=== PATIENT | male | born 1995 | race Caucasian/White ===

== ENCOUNTER 2022-03-28 13:23 | Emergency (ER) | payer MEDICAID, SELFPAY ==
[2022-03-28 13:25] VITALS: BP 147/92; PULSE 108; RESP 20; TEMP 36.4; O2SAT 99; BMI 19.3
--- NOTE | 2022-03-28 13:43 | ED.RN ---
pt refusing to stay in room when asked. whatcha gonna do about it kaci retana. pt gave staff the peace sign, pt left.
== END 2022-03-28 13:51 | disposition left against medical advice (07) ==
LOC: ED 13:51
PROVIDERS: Emergency Provider Emergency Medicine; Visit Provider Emergency Medicine
DX: Z53.21 Procedure and treatment not carried out due to patient leaving prior to being seen by health care provider (principal)
CPT/HCPCS: 99283; A4216

== ENCOUNTER 2022-03-30 12:25 | Emergency (ER) | payer SELFPAY ==
[2022-03-30 12:25] VITALS: BP 134/71; PULSE 102; RESP 18; TEMP 36.6; O2SAT 98; BMI 22.6
[2022-03-30 12:51] VITALS: BP 103/55; PULSE 91; RESP 16; O2SAT 97
--- NOTE | 2022-03-30 12:58 | ED.RN ---
pt was outside of department on ramp. he was willing to return to ed for help. pt walked in to room 17 and assessed. post assessment pt requested to leave. pt was not pink slipped by pd and maintained his rights to make medical decision. he displayed paranoid behavior, but stated no thoughts of suicidal or homicidal ideation. he was given water prior to leaving department under own power with no s/s of impairment. demario was instructed that he could return at anytime for help. he expressed understanding and gratitude. pacheco burks, rn [id number]
== END 2022-03-30 12:52 | disposition left against medical advice (07) ==
DX: Z53.21 Procedure and treatment not carried out due to patient leaving prior to being seen by health care provider (principal)
CPT/HCPCS: 99281

== ENCOUNTER 2022-03-30 16:29 | Emergency (ER) | payer MEDICAID, SELFPAY ==
[2022-03-30] VITALS (8 sets, daily range): BP systolic 118–145; BP diastolic 74–101; PULSE 74–104; RESP 14–18; TEMP 36.5–36.6; O2SAT 97–99; BMI 21.7
--- NOTE | 2022-03-30 16:42 | EKG12_ITS ---
Test Reason : MENTAL HEALTH Blood Pressure : / mmHG Vent. Rate : 055 BPM Atrial Rate : 055 BPM P-R Int : 118 ms QRS Dur : 094 ms QT Int : 388 ms P-R-T Axes : 047 081 058 degrees QTc Int : 371 ms Sinus bradycardia with sinus arrhythmia Otherwise normal ECG Confirmed by SAL CARCAMO, BRITT ([id number]), mapping editor PATRICIA RICE ([id number]) on 04/01/2022 10:22:04 AM Referred By: KIN Confirmed By:BRITT HUANG MD
--- NOTE | 2022-03-30 16:42 | EDS_ITS ---
HPI HPI - Psych History of Present Illness Chief Complaint: Mental Health Narrative Narrative: 26-year-old male past medical history of paranoid schizophrenia presents with police. Apparently he was dropped off here on Tuesday. He was also here earlier in the day, but left. Reportedly he was at [employer] [employer] trying to get his meds. He admittedly has not taken his meds for the last few months if not longer. He does admit to drinking alcohol. He is paranoid, saying that he thinks that he is dying and wants to be evaluated. He states that they are preventing him from sleeping and he has not slept in 7 days. He feels that they are also controlling his body and putting something into it. However, he denies any suicidal ideation, homicidal ideation, or hallucinations. Police officers state that they have received multiple calls regarding him at local businesses because of his behavior that he becomes hostile and he starts yelling. [facility] Medical History (Updated 03/30/22 @ 21:17 by Sarkis Horn MD) Alcohol abuse Schizophrenia Smoker Substance abuse Home Medications NK 03/30/22 [History Last Taken Unknown] Allergy/AdvReac Type Severity Reaction Status Date / Time No Known Allergies Allergy Verified 03/30/22 16:31 Social History Smoking Status: Current every day smoker tobacco type: cigarettes ROS ROS ED ROS Narrative Review of systems mildly limited to psychiatric disorder. Constitutional: No fever, no chills. HEENT: No sore throat. No neck pain. No loss of vision. No rhinorrhea. Cardiovascular: No chest pain. No palpitations. No pedal edema. Respiratory: No cough, no shortness of breath. Abdominal: No abdominal pain. No nausea. No vomiting. Genitourinary: No dysuria. No hematuria. Musculoskeletal: No myalgias. No arthralgias. Neurologic: No headaches. No dizziness. No lightheadedness. Skin: No rash. No change in color. Psychiatric: No depression. No anxiety. Thinks he is dying. EXAM Physical Exam Narrative Exam Narrative: Afebrile. Vital signs noted. Unkempt. HEENT: Normocephalic. Atraumatic. PERRL, EOMI. Neck soft and supple. No point tenderness or step off. Cardiovascular: Regular rate and rhythm. No murmurs, rubs, or gallops appreciated. Respiratory: No tachypnea. Lungs clear to auscultation bilaterally. Gastrointestinal: Abdomen soft, nontender, with normoactive bowel sounds. No rebound or guarding. Neurological: Awake. Alert. Nonfocal, nonlateralizing. Skin: No rash. Normal color. No pallor. Positive bedbug bites on skin of lower extremities. Musculoskeletal: No pedal edema. Full range of motion extremities. Const Vital Signs: 03/30/22 16:29 03/30/22 17:35 03/30/22 18:10 Temperature 97.7 F L Temperature Source Temporal Pulse Rate 84 104 H Respiratory Rate 18 14 16 Blood Pressure 129/101 H 145/96 H Blood Pressure Mean 110 112 Pulse Ox 99 97 Oxygen Delivery Method Room Air Room Air 03/30/22 19:26 03/30/22 20:00 03/30/22 21:08 Temperature 97.9 F Temperature Source Temporal Pulse Rate 74 Respiratory Rate 16 16 17 Blood Pressure 118/74 Blood Pressure Mean 88 Pulse Ox 99 Oxygen Delivery Method Room Air MDM MDM MDM Narrative Medical decision making narrative: Medical screening labs were obtained. EKG demonstrates normal sinus rhythm at 55 bpm with sinus arrhythmia but no acute ST changes. No STEMI. CBC is grossly normal/unremarkable. CMP shows chloride of 108, normal creatinine 0.8, AST slightly elevated 54 which I think is nonspecific, normal ALT of 45. Alcohol level negative at less than 3.0. Urine drug screen positive for cannabinoids. I do feel that he is medically cleared for evaluation. In discussion with social work, it was thought that he would benefit from placement in a psychiatric facility. Disposition is transfer to [facility]. Patient is in stable condition. Lab Data Attestation: I reviewed the patient's lab results. Labs: Laboratory Results - last 24 hr 03/30/22 03/30/22 03/30/22 16:50 16:50 16:50 WBC 7.8 RBC 4.20 L Hgb 14.4 Hct 40.4 MCV 96.2 H MCH 34.3 H MCHC 35.6 RDW Std Deviation 44.2 H RDW Coeff of Kobe 12.7 Plt Count 255 MPV 10.1 Immature Gran % (Auto) 0.300 Neut % (Auto) 60.4 Lymph % (Auto) 28.5 [place] % (Auto) 8.9 Eos % (Auto) 1.4 Baso % (Auto) 0.5 Absolute Neuts (auto) 4.7 Absolute Lymphs (auto) 2.21 Nucleated RBC % 0 Sodium 138 Potassium 4.0 Chloride 108 H Carbon Dioxide 24.0 Anion Gap 6 BUN 18 Creatinine 0.84 Estim Creat Clear Calc 117.45 Est GFR (MDRD) Af Amer 143 Est GFR (MDRD) Non-Af 119 BUN/Creatinine Ratio 21.4 H Glucose 106 Calcium 9.2 Total Bilirubin 0.80 AST 54 H ALT 45 Alkaline Phosphatase 71 Total Protein 7.2 Albumin 3.7 Globulin 3.5 Albumin/Globulin Ratio 1.1 Urine Opiates Screen Urine Methadone Screen Ur Barbiturates Screen Ur Phencyclidine Scrn Ur Amphetamines Screen MDMA (Ecstasy) Screen U Benzodiazepines Scrn Urine Cocaine Screen U Cannabinoids Screen Ur Drug Screen Comment Ethyl Alcohol < 3.0 03/30/22 16:53 WBC RBC Hgb Hct MCV MCH MCHC RDW Std Deviation RDW Coeff of Kobe Plt Count MPV Immature Gran % (Auto) Neut % (Auto) Lymph % (Auto) [place] % (Auto) Eos % (Auto) Baso % (Auto) Absolute Neuts (auto) Absolute Lymphs (auto) Nucleated RBC % Sodium Potassium Chloride Carbon Dioxide Anion Gap BUN Creatinine Estim Creat Clear Calc Est GFR (MDRD) Af Amer Est GFR (MDRD) Non-Af BUN/Creatinine Ratio Glucose Calcium Total Bilirubin AST ALT Alkaline Phosphatase Total Protein Albumin Globulin Albumin/Globulin Ratio Urine Opiates Screen NEGATIVE Urine Methadone Screen NEGATIVE Ur Barbiturates Screen NEGATIVE Ur Phencyclidine Scrn NEGATIVE Ur Amphetamines Screen NEGATIVE MDMA (Ecstasy) Screen NEGATIVE U Benzodiazepines Scrn NEGATIVE Urine Cocaine Screen NEGATIVE U Cannabinoids Screen POSITIVE H Ur Drug Screen Comment Ethyl Alcohol Discharge Plan Triage Chief Complaint: Mental Health ED Provider: Sarkis Horn Dx/Rx/DC Orders Clinical Impression: Schizophrenia, Paranoia, Psychosis Prescriptions: No Action NK Primary Care Provider: Care Physician,No Primary Referrals: Care Physician,No Primary [Primary Care Provider] - Disposition Disposition: Psychiatric Hospital or Unit Discharge Location: [facility]
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
[2022-03-30 16:59] LABS: Absolute Lymphocyte Count 2.21 X10^3/uL (0.83-4.51); Absolute Neutrophil Count 4.7 X10^3/uL (2.0-7.7); Basophil# 0.04 X10^3/uL; Basophil% 0.5 % (0-1); Eosinophil# 0.11 X10^3/uL; Eosinophils% 1.4 % (0-5); Hematocrit 40.4 % (40-54); Hemoglobin 14.4 g/dL (13.0-16.5); Lymphocyte # 2.21 X10^3/ul (0.83-4.51); Lymphocyte % 28.5 % (19-41); Mean Corp Hgb Conc 35.6 g/dL (32-36); Mean Corpuscular Hgb 34.3 pg (27.0-32.0); Mean Corpuscular Volume 96.2 fL (80-94); Mean Platelet Vol. 10.1 fl (6.2-12.0); Monocyte# 0.69 X10^3/uL; Monocyte% 8.9 % (0-10); NRBC Flagged by Analyzer 0 % (0-5); Neutrophil # 4.68 X10^3/uL (2.7-7.7); Neutrophil % 60.4 % (47-70); Platelet Count 255 K/mm3 (150-450); RBC Distribution Width CV 12.7 % (11.6-14.6); RBC Distribution Width SD 44.2 fl (35.1-43.9); White Blood Count 7.8 K/mm3 (4.4-11.0)
[2022-03-30 17:20] LABS: ALB/GLOB Ratio 1.1 RATIO (0.9-2.4); AST(SGOT) 54 U/L (15-37); Alanine Aminotransfer ALT/SGPT 45 U/L (16-61); Albumin, Serum 3.7 g/dL (3.2-5.0); Alkaline Phosphatase 71 U/L (45-117); Anion Gap 6 (5-15); BUN 18 mg/dL (7-18); BUN/Creat Ratio 21.4 RATIO (10-20); Calcium,Total 9.2 mg/dL (8.5-10.1); Chloride 108 mmol/L (98-107); Creatinine, Serum 0.84 mg/dL (0.70-1.30); EST Glomerular Filtration Rate 119 mL/min (>60); Est Glom Filt Rate - Afr Amer 143 mL/min (>60); Estimated Creatinine Clearance 117.45 ml/min; Globulin 3.5 g/dL (2.2-4.2); Glucose 106 mg/dL (74-106); Protein, Total 7.2 g/dL (6.4-8.2); Sodium Level 138 mmol/L (136-145)
[2022-03-30 17:29] LABS: Alcohol, Blood (Medical)-Serum < 3.0 mg/dL
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
[2022-03-30 17:40] LABS: Amphetamine Urine VISTA NEGATIVE (<1000 ng/mL); Barbiturate Urine VISTA NEGATIVE (< 200 ng/mL); Benzodiazepine Urine VISTA NEGATIVE (< 200 ng/mL); Cocaine Urine VISTA NEGATIVE (< 300 ng/mL); Ecstacy Urine VISTA NEGATIVE (< 500 ng/mL); Methadone Urine VISTA NEGATIVE (< 300 ng/mL); PCP Urine VISTA NEGATIVE (< 25 ng/mL); THC Urine VISTA POSITIVE (< 50 ng/mL); Vista UDS pH Range 4
[2022-03-30] MEDS: LORazepam 1 MG Tablet PO (17:48)
--- NOTE | 2022-03-30 20:07 | CM.ED ---
HOMER Note SW faxed referral packet to [facility]. HOMER called Yaquelin at [facility] and advised of referral. Kaylynn HOLCOMB
--- NOTE | 2022-03-30 21:12 | CM.ED ---
Social Work Note [facility] requested [place] [facility], EKG, and COVID screening tool to be faxed to them. SW faxed requested clinicals. Pt has been accepted to [facility]. Accepting physician is Dr. Sanabria. Pt is going to [id number]. RN to RN number . Lilli Sears PREPARATOR, INDUSTRIAL FURNACE FABRICATOR
--- NOTE | 2022-03-30 21:25 | ED.RN ---
SILVERIO ANG WILL CALL BACK FOR REPORT
--- NOTE | 2022-03-30 21:44 | NURSING ---
REPORT GIVEN TO TRINA ANG
== END 2022-03-30 22:01 ==
PROVIDERS: Emergency Provider Emergency Medicine; Visit Provider Emergency Medicine
DX: F20.0 Paranoid schizophrenia (principal); F17.210 Nicotine dependence, cigarettes, uncomplicated
CPT/HCPCS: 80053; 80307; 82077; 85025; 87811; 93005; 99281; 99285

== ENCOUNTER 2025-03-19 11:11 | Emergency (ER) | payer MEDICAID, SELFPAY ==
[2025-03-19 11:11] VITALS: BP 143/84; PULSE 105; RESP 14; TEMP 36.6; O2SAT 96; BMI 25.7
--- NOTE | 2025-03-19 11:47 | EX.ED.VIS.PS ---
HPI HPI - Psych History of Present Illness Chief Complaint: Suicidal Informant: patient Onset/Context/Timing Onset: Days Context: Gradual Onset Timing: Continuous Current Severity: Mild Maximum Severity: Mild Associated Symptoms Associated Symptoms - Psych: Positive for Depressed, Suicidal Thoughts and Auditory Hallucinations Specific plan (suicidal thought): No plan Narrative Narrative: 29-year-old male history of schizophrenia and alcohol abuse. States he has not been on any of his schizophrenic meds for probably 2 years. Currently he is on a waiting list to be seen by the counseling center. Said he is hearing voices. He is having suicidal thoughts but denies any recent attempt. He has had prior psychiatric admissions and his last one was around 2021. Prior similar symptoms: Yes Recent Illness/Hospitalization: No PFSH PFSH Medical History Smoker Substance abuse Schizophrenia Alcohol abuse Home Medications ?Medication ?Instructions ?Recorded ?Last Taken ?Type NK 03/30/22 Unknown History Allergy/AdvReac Type Severity Reaction Status Date / Time No Known Allergies Allergy Verified 03/19/25 11:11 Social History Smoking Status: Current every day smoker tobacco type: cigarettes ROS ROS ED ROS Narrative Denies recent illness. Constitutional Constitutional ED: Denies fever(s) Eyes Eyes: Denies blurry vision ENT ENT ED: Denies ear pain Cardiovascular Cardiovascular: Denies chest pain Respiratory/Chest Respiratory/Chest: Denies cough Gastrointestinal Gastrointestinal: Denies abdominal pain Genitourinary Genitourinary ED: Denies dysuria Musculoskeletal Musculoskeletal: Denies arthralgias Integumentary Denies abscess Neurologic Neurologic: Denies headache(s) Psychiatric Psychiatric: Reports suicidal thoughts Endocrine Endocrinology: Denies polydipsia or polyphagia Hematologic/Lymphatic Hematologic/Lymphatic: Denies easy bleeding, easy bruising or lymphadenopathy Allergic/Immunologic Allergic/Immunologic ED: Denies mouth swelling, tongue swelling or urticaria EXAM Physical Exam Narrative Exam Narrative: 24-year-old male no acute distress. Vital signs stable afebrile. Sitter in the room. H EENT exam pupils round react to light. Mytrex membranes. Neck nontender. No lymphadenopathy. No strangulation. Lungs clear to auscultation bilaterally. Heart tachycardic 105 no murmur. Chest wall ribs nontender. Abdomen soft nontender. Back nontender. Moving all 4 extremities. Nontender. No edema. No lacerations. Normal strength and range of motion. Multiple tattoos. Neurologically is awake alert. Answering questions following commands. Currently patient is forthcoming with information. Const Vital Signs: 03/19/25 11:11 Temperature 98 F Temperature Source Temporal Pulse Rate 105 H Respiratory Rate 14 Blood Pressure 143/84 H Blood Pressure Mean 103 Pulse Ox 96 Oxygen Delivery Method Room Air Positive well nourished and well developed; Negative for obese, cachectic, contractures or unkempt General Appearance ED: well developed and NAD; Negative for unkempt, cachectic, contractures or pallor Nutritional Appearance: Negative for cachectic or obese HEENT Reports moist mucous membranes normocephalic and atraumatic; Negative for trauma or tenderness Eyes PERRL and EOMs intact bilaterally Neck no lymphadenopathy, supple and no JVD Resp normal respiratory effort and clear to auscultation bilaterally Cardio S1 normal heart sound, S2 normal heart sound and no murmurs Rate: tachycardic Rhythm: regular rhythm GI non-tender, non-distended and no masses Auscultation: normoactive bowel sounds Palpation: soft; Negative for tender or guarding Back/Spine no CVA tenderness General Back: Negative for CVA tenderness Cervical Spine: Negative for cervical spine tenderness Thoracic Spine / Upper Back: Negative for thoracic spinal tenderness Lumbar Spine / Lower Back: Negative for lumbar spinal tenderness Coccyx: Negative for other Extremity normal to inspection General Extremety ED: Negative for edema or tenderness General Extremity: Negative for edema Neuro oriented x3, CN's II-XII intact bilaterally and no sensory deficits noted Sensorium / Orientation: alert, oriented to person, oriented to place and oriented to time; Negative for orientation impaired or confused Motor Exam: strength 5/5 throughout Psych mental status grossly normal, thought process normal, cooperative, affect normal and speech normal; Negative for denies hallucinations or denies suicidal ideation Appearance: grossly normal, appropriate and well kempt; Negative for unkempt Attitude: calm, engaged, No uncooperative, No belligerent and No aggressive Activity / Motor Behavior: appropriate eye contact Speech: normal speech Mood & Affect: depressed Thought Process: normal thought process Thought Content: suicidality Attention / Concentration: attention grossly intact and concentration grossly intact Memory / Cognition: memory grossly intact Insight: insight good and fair Judgement: judgement good and fair Skin General Skin Exam: Negative for jaundice or pallor Lesions: no lesions Rashes: no rashes Trauma: Negative for abrasion Wounds: Negative for amputation MDM MDM MDM Narrative Medical decision making narrative: 29-year-old male with schizophrenia has been off medications for 2 years or more. Currently he is on a waiting list to see the counseling center. Hearing voices. Having suicidal thoughts but denies any recent attempts. Last admission was 3 years ago in 2021. Patient will have the ED mental health laboratory workup. I will have our counselor evaluate the patient. I spoke to our high school social science teacher after she interviewed the patient. She and I both think that he would benefit from inpatient psychiatric care currently being off his meds and his exacerbation of schizophrenia. Patient is comfortable with that plan and is actually requesting admission also. History & Record Review Discussion w/independent historian: Patient Additional record(s) reviewed:: Prior inpatient record, Prior outpatient record, Prior ED visit and Prior labs Lab Data Attestation: I reviewed the patient's lab results. Lab results narrative: CBC unremarkable white count 9. H&H 14 and 41. Platelets 304. Electrolytes show sodium 142. Gap 14. BUN and creatinine of 16 and 0.7. Glucose 145. Urine tox screen is positive for cannabis only. Labs: Laboratory Results - last 24 hr 03/19/25 11:39 WBC 9.8 RBC 4.40 L Hgb 14.7 Hct 41.1 MCV 93.4 MCH 33.4 H MCHC 35.8 RDW Std Deviation 44.3 H RDW Coeff of Kobe 12.9 Plt Count 304 MPV 9.7 Immature Gran % (Auto) 0.500 Neut % (Auto) 74.2 H Lymph % (Auto) 16.0 L [place] % (Auto) 7.4 Eos % (Auto) 1.2 Baso % (Auto) 0.7 Absolute Neuts (auto) 7.2 Absolute Lymphs (auto) 1.56 Nucleated RBC % 0 Sodium 142 Potassium 3.7 Chloride 106 Carbon Dioxide 22.2 Anion Gap 14 BUN 16 Creatinine 0.76 Estim Creat Clear Calc 131.75 Est GFR (MDRD) Non-Af 126 BUN/Creatinine Ratio 21.1 H Glucose 145 H Calcium 9.7 Urine Opiates Screen NEGATIVE U Buprenorphine Qual NEGATIVE Ur Oxycodone Screen NEGATIVE Urine Methadone Screen NEGATIVE Urine Fentanyl Screen NEGATIVE Ur Barbiturates Screen NEGATIVE Ur Phencyclidine Scrn NEGATIVE Ur Amphetamines Screen NEGATIVE U Benzodiazepines Scrn NEGATIVE Urine Cocaine Screen NEGATIVE U Cannabinoids Screen PRESUMPTIVE POSITIVE Ethyl Alcohol < 10.1 Discharge Plan Triage Chief Complaint: Suicidal ED Provider: Andrea Pena Dx/Rx/DC Orders Clinical Impression: Schizophrenia, Auditory hallucinations, Suicidal thoughts, Medical non-compliance Prescriptions: No Action NK Primary Care Provider: Care Physician,No Primary Referrals: Care Physician,No Primary [Primary Care Provider] - Print Language: Portuguese Disposition Disposition: Psychiatric Hospital or Unit
[2025-03-19 11:50] LABS: Absolute Lymphocyte Count 1.56 X10^3/uL (0.83-4.51); Absolute Neutrophil Count 7.2 X10^3/uL (2.0-7.7); Basophil# 0.07 X10^3/uL; Basophil% 0.7 % (0-1); Eosinophil# 0.12 X10^3/uL; Eosinophils% 1.2 % (0-5); Hematocrit 41.1 % (40-54); Hemoglobin 14.7 g/dL (13.0-16.5); Lymphocyte # 1.56 X10^3/ul (0.83-4.51); Mean Corp Hgb Conc 35.8 g/dL (32-36); Mean Corpuscular Hgb 33.4 pg (27.0-32.0); Mean Corpuscular Volume 93.4 fL (80-94); Mean Platelet Vol. 9.7 fl (6.2-12.0); Monocyte# 0.72 X10^3/uL; Monocyte% 7.4 % (0-10); NRBC Flagged by Analyzer 0 % (0-5); Neutrophil # 7.23 X10^3/uL (2.7-7.7); Neutrophil % 74.2 % (47-70); Platelet Count 304 K/mm3 (150-450); RBC Distribution Width CV 12.9 % (11.6-14.6); RBC Distribution Width SD 44.3 fl (35.1-43.9); White Blood Count 9.8 K/mm3 (4.4-11.0)
[2025-03-19 12:10] LABS: Amphetamine Urine NEGATIVE (<1000 ng/mL); Barbiturate Urine NEGATIVE (< 200 ng/mL); Benzodiazepine Urine NEGATIVE (< 200 ng/mL); Buprenorphine Urine NEGATIVE (< 200 ng/mL); Cocaine Urine NEGATIVE (< 300 ng/mL); Fentanyl, Urine NEGATIVE; Methadone Urine NEGATIVE (< 300 ng/mL); Opiates Urine NEGATIVE (< 300 ng/mL); Oxycodone, Urine NEGATIVE (< 100 ng/mL); PCP Urine NEGATIVE (< 25 ng/mL); THC Urine PRESUMPTIVE POSITIVE (< 50 ng/mL)
[2025-03-19 12:11] VITALS: PULSE 82; RESP 16; O2SAT 99
[2025-03-19 12:12] LABS: Anion Gap 14 (5-15); BUN 16 mg/dL (4-19); BUN/Creat Ratio 21.1 RATIO (10-20); Calcium,Total 9.7 mg/dL (7.6-11.0); Carbon Dioxide 22.2 mmol/L (21.0-32.0); Chloride 106 mmol/L (98-108); Creatinine, Serum 0.76 mg/dL (0.70-1.20); EST Glomerular Filtration Rate 126 (>60); Estimated Creatinine Clearance 131.75 ml/min (50-250); Glucose 145 mg/dL (70-99); Potassium 3.7 mmol/L (3.3-5.1); Sodium Level 142 mmol/L (133-145)
[2025-03-19 12:31] LABS: Alcohol, Blood (Medical)-Serum < 10.1 mg/dL (<=10.0)
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
--- NOTE | 2025-03-19 13:25 | CM.ED ---
Social Work SW contacted [facility] who confirmed they have an open bed. Referral sent. [facility] called back and accepted patient. Dr. Bartholomew is accepting physician. [id number] [phone] option 2. Ghislaine Gracia, GRAFFITI CLEANER, WINDOW DECORATOR
[2025-03-19] MEDS: LORazepam 1 MG Tablet PO (16:18)
[2025-03-19 16:30] VITALS: BP 143/84; PULSE 82; RESP 16; TEMP 36.6; O2SAT 99
== END 2025-03-19 16:31 ==
PROVIDERS: Emergency Provider Emergency Medicine; Visit Provider Emergency Medicine
DX: R45.851 Suicidal ideations (principal); F20.9 Schizophrenia, unspecified; F17.210 Nicotine dependence, cigarettes, uncomplicated; F10.10 Alcohol abuse, uncomplicated; Y90.0 Blood alcohol level of less than 20 mg/100 ml; Z91.148 Patient's other noncompliance with medication regimen for other reason
CPT/HCPCS: 80048; 80307; 82077; 85025; 99284